=== PATIENT | male | born 1965 | race Caucasian/White ===

== ENCOUNTER 2016-09-15 20:33 | Emergency (ER) | payer BC ==
[~2016-09-15] VITALS: Ht 175.2 cm; Wt 74.8 kg
[~2016-09-15 20:33] MED LIST: FLOMAX0.4 MG PO; HYDROCODONE BIT1 T11 PO; PHENERGAN25 MG RC; VICODIN 500 MG-1 TAB PO; ZOFRAN4 MG PO
[2016-09-15] MEDS ORDERED: CLINDAMYCIN HC300 MG PO (21:10)
[2016-09-15] MEDS ORDERED: Motrin,Rufen800 MG PO (21:10)
== END 2016-09-15 21:12 | disposition home or self-care (01) ==
LOC: ED 20:33
DX: K04.01 Reversible pulpitis (principal); Z88.6 Allergy status to analgesic agent

== ENCOUNTER 2017-05-09 20:19 | Emergency (ER) | payer BC, OTHER ==
[~2017-05-09] VITALS: Ht 175.2 cm; Wt 72.6 kg
[~2017-05-09 20:19] MED LIST changes: +CLINDAMYCIN HC300 MG PO; +Motrin,Rufen800 MG PO
[2017-05-09] MEDS ORDERED: ATARAX,VISTARIL50 MG PO (20:32)
== END 2017-05-09 20:40 | disposition home or self-care (01) ==
LOC: ED 20:19
DX: T63.441A Toxic effect of venom of bees, accidental (unintentional), initial encounter (principal); M79.89 Other specified soft tissue disorders; Z88.6 Allergy status to analgesic agent; Y92.9 Unspecified place or not applicable

== ENCOUNTER 2019-06-14 20:15 | Emergency (ER) | payer OTHER ==
[~2019-06-14] VITALS: Ht 175.2 cm; Wt 73.9 kg
[~2019-06-14 20:15] MED LIST changes: +ATARAX,VISTARIL50 MG PO; +CHLORASEPTIC MA30 ML MM; +CYCLOBENZAPRINE10 MG PO; +MEDROL DOSEPAK4 MG PO; +MULTIVITAMINS1 EAC5 PO; +NORCO 5-325 TA1 EACH PO; +ULTRAM50 MG PO
[2019-06-14] MEDS ORDERED: SEPTDS PO (20:34)
[2019-06-14] MEDS ORDERED: ANTIBIOTIC28.4 GM T (20:34)
== END 2019-06-14 20:48 | disposition home or self-care (01) ==
LOC: ED 20:15
DX: L08.9 Local infection of the skin and subcutaneous tissue, unspecified (principal); Z88.6 Allergy status to analgesic agent; Z79.899 Other long term (current) drug therapy

== ENCOUNTER 2021-08-27 18:12 | Emergency (ER) | payer OTHER ==
[~2021-08-27 18:12] MED LIST changes: +ANTIBIOTIC28.4 GM T; +SEPTDS PO
== END 2021-08-27 23:11 | disposition left against medical advice (07) ==
LOC: ED 18:12
DX: Z53.21 Procedure and treatment not carried out due to patient leaving prior to being seen by health care provider (principal)

== ENCOUNTER → 2021-08-31 | Outpatient (CLI) | payer OTHER | LOC: WOUNDCARE 01:14 | PROVIDERS: ATTEND Nurse Practitioner Family | DX: S00.03XA Contusion of scalp, initial encounter (principal); L02.811 Cutaneous abscess of head [any part, except face]; Z90.49 Acquired absence of other specified parts of digestive tract; Z98.890 Other specified postprocedural states; Z79.899 Other long term (current) drug therapy; W22.8XXA Striking against or struck by other objects, initial encounter; Y93.89 Activity, other specified; Y92.89 Other specified places as the place of occurrence of the external cause; Y99.8 Other external cause status ==

== ENCOUNTER → 2021-09-03 | Outpatient (CLI) | payer OTHER | END | disposition home or self-care (01) | LOC: CT 11:00 | PROVIDERS: ATTEND Nurse Practitioner Family | DX: S00.03XA Contusion of scalp, initial encounter (principal); S09.90XA Unspecified injury of head, initial encounter; X58.XXXA Exposure to other specified factors, initial encounter; Y93.89 Activity, other specified; Y92.89 Other specified places as the place of occurrence of the external cause; Y99.8 Other external cause status ==

== ENCOUNTER → 2021-09-10 | Outpatient (CLI) | payer OTHER | LOC: WOUNDCARE 01:05 | PROVIDERS: ATTEND Nurse Practitioner Family | DX: S00.03XD Contusion of scalp, subsequent encounter (principal); L02.811 Cutaneous abscess of head [any part, except face]; Z90.49 Acquired absence of other specified parts of digestive tract; Z98.890 Other specified postprocedural states; Z79.899 Other long term (current) drug therapy; W22.8XXD Striking against or struck by other objects, subsequent encounter ==

== ENCOUNTER → 2022-07-02 | Outpatient (CLI) | payer OTHER | END | disposition home or self-care (01) | LOC: RAD 10:42 | PROVIDERS: ATTEND Family Medicine | DX: R05.3 Chronic cough (principal); M47.814 Spondylosis without myelopathy or radiculopathy, thoracic region; M81.0 Age-related osteoporosis without current pathological fracture ==

== ENCOUNTER 2023-09-09 11:21 | Emergency (ER) | payer OTHER ==
[~2023-09-09] VITALS: Ht 172.7 cm; Wt 79.4 kg
[2023-09-09 12:54] LABS: BASO % 0.3 % (0.0-1.0); EOS % 0.3 % (1.0-4.0); HEMATOCRIT 44.8 % (42.0-52.0); LYMPH # 0.8 10*3/uL (1.3-4.4); LYMPH % 10.9 % (27.0-41.0); MEAN CELL VOLUME 100.9 fl (80.0-94.0); MEAN CORPUSCULAR HGB 33.1 pg (27.0-31.0); MEAN CORPUSCULAR HGB CONC 32.8 g/dl (33.0-37.0); MEAN PLATELET VOLUME 8.9 fl (9.6-12.3); MONO # 1.3 10*3/uL (0.1-1.0); MONO % 17.6 % (3.0-9.0); NEUT # 5.4 10*3/uL (2.3-7.9); NEUT % 70.5 % (47.0-73.0); PLATELET COUNT AUTOMATED 189 10*3/uL (130-400); RED BLOOD COUNT 4.44 10*6/uL (4.50-5.90); WHITE BLOOD COUNT 7.6 10*3/uL (4.8-10.8)
[2023-09-09 13:05] LABS: ACT PARTIAL THROMBO TIME 34.7 SECONDS (20.0-32.1)
[2023-09-09 13:21] LABS: ALKALINE PHOSPHATASE 79 U/L (46-116); BUN 16 mg/dl (9-23); CHLORIDE 104 mmol/L (98-107); LIPASE 65 U/L (12-53); POTASSIUM 3.9 mmol/L (3.4-5.1); SGPT/ALT 31 U/L (5-49); TOTAL PROTEIN 6.9 gm/dL (6.0-8.0)
[2023-09-09] MEDS ORDERED: Motrin,Rufen800 MG PO (14:27)
[2023-09-09] MEDS ORDERED: ONDANSETRON4 MG SL (14:27)
== END 2023-09-09 14:40 | disposition home or self-care (01) ==
LOC: ED 11:21
PROVIDERS: Emergency Medicine
DX: J10.1 Influenza due to other identified influenza virus with other respiratory manifestations (principal); R10.2 Pelvic and perineal pain; Z87.442 Personal history of urinary calculi; Z88.5 Allergy status to narcotic agent; Z90.89 Acquired absence of other organs; Z90.49 Acquired absence of other specified parts of digestive tract; Z98.890 Other specified postprocedural states; Z20.822 Contact with and (suspected) exposure to COVID-19

== ENCOUNTER → 2024-04-04 | Outpatient (CLI) | payer OTHER ==
[~2024-04-04] MED LIST changes: +ONDANSETRON4 MG SL
[2024-04-04 09:12] LABS: BASO # 0.1 10*3/uL (0.0-0.1); BASO % 0.8 % (0.0-1.0); EOS # 0.5 10*3/uL (0.0-0.4); EOS % 6.5 % (1.0-4.0); HEMATOCRIT 51.5 % (42.0-52.0); LYMPH # 2.1 10*3/uL (1.3-4.4); LYMPH % 25.6 % (27.0-41.0); MEAN CORPUSCULAR HGB 33.9 pg (27.0-31.0); MEAN CORPUSCULAR HGB CONC 33.2 g/dl (33.0-37.0); MEAN PLATELET VOLUME 9.1 fl (9.6-12.3); MONO % 12.4 % (3.0-9.0); NEUT # 4.4 10*3/uL (2.3-7.9); NEUT % 54.3 % (47.0-73.0); PLATELET COUNT AUTOMATED 220 10*3/uL (130-400); RED BLOOD COUNT 5.05 10*6/uL (4.50-5.90); RED CELL DISTRI WIDTH 12.1 % (0-14.5)
[2024-04-04 09:15] LABS: BILIRUBIN Negative (Negative); BLOOD Negative (Negative); CLARITY Clear (Clear); COLOR Yellow (Yellow); GLUCOSE Negative (Negative); KETONE Negative (Negative); LEUKO ESTERASE Negative (Negative); NITRITE Negative (Negative); PH 5.5 (4.5-8.0); UROBILINOGEN 0.2 E.U./dl (0.0-1.0)
[2024-04-04 09:49] LABS: POTASSIUM 3.8 mmol/L (3.4-5.1); TOTAL PROTEIN 7.1 gm/dL (6.0-8.0)
[2024-04-04 10:07] LABS: BACTERIA TRACE; EPITHELIAL CELLS 0-2; MUCOUS 2+
[2024-04-07 16:08] LABS: TESTOSTERONE FREE, (DIRECT) 11.3 pg/mL (7.2-24.0)
== END | disposition home or self-care (01) ==
LOC: LAB 08:25
PROVIDERS: ATTEND Nurse Practitioner Family
DX: Z13.0 Encounter for screening for diseases of the blood and blood-forming organs and certain disorders involving the immune mechanism (principal); Z13.29 Encounter for screening for other suspected endocrine disorder; Z13.1 Encounter for screening for diabetes mellitus; Z13.228 Encounter for screening for other metabolic disorders; N52.9 Male erectile dysfunction, unspecified; Z76.89 Persons encountering health services in other specified circumstances

== ENCOUNTER 2024-10-09 05:15 | Emergency (ER) | payer OTHER ==
[~2024-10-09] VITALS: Ht 172.7 cm; Wt 81.6 kg
[2024-10-09] MEDS ORDERED: Tdap Vaccine 0.5 ML SYR (Adult Vaccine) IM ONE (06:20)
[2024-10-09] MEDS ORDERED: DERMABOND 1 EA APPL T ONE (06:35)
== END 2024-10-09 06:42 | disposition home or self-care (01) ==
LOC: ED 05:15
DX: S01.81XA Laceration without foreign body of other part of head, initial encounter (principal); Z88.5 Allergy status to narcotic agent; Z88.8 Allergy status to other drugs, medicaments and biological substances; Z79.899 Other long term (current) drug therapy; Z79.2 Long term (current) use of antibiotics; Z98.890 Other specified postprocedural states; Z90.89 Acquired absence of other organs; W22.8XXA Striking against or struck by other objects, initial encounter; Y93.89 Activity, other specified; Y92.89 Other specified places as the place of occurrence of the external cause; Y99.0 Civilian activity done for income or pay

== ENCOUNTER 2024-12-30 10:02 | Emergency (ER) | payer OTHER ==
[~2024-12-30] VITALS: Ht 172.7 cm; Wt 81.6 kg
[2024-12-30] MEDS ORDERED: OMEPRAZOLE40 MG PO (10:07)
[2024-12-30] MEDS ORDERED: TADALAFIL10 MG PO (10:07)
[2024-12-30] MEDS ORDERED: SODIUM CHLORIDE 0.9% 1,000 ML IV ONE (10:20)
[2024-12-30] MEDS ORDERED: MORPHINE Sulfate 2 MG/ML SYR IV ONE (10:20)
[2024-12-30] MEDS ORDERED: Ondansetron Hydrochloride 4 MG/2 ML VIAL IV ONE (10:20)
[2024-12-30] MEDS ORDERED: Ketorolac Tromethamine 15 MG/ML VIAL IV ONE (10:20)
[2024-12-30 10:33] LABS: BASO % 0.4 % (0.0-1.0); EOS # 0.3 10*3/uL (0.0-0.4); EOS % 2.7 % (1.0-4.0); HEMATOCRIT 49.8 % (42.0-52.0); MEAN CELL VOLUME 98.4 fl (80.0-94.0); MEAN CORPUSCULAR HGB CONC 33.5 g/dl (33.0-37.0); MEAN PLATELET VOLUME 8.9 fl (9.6-12.3); NEUT # 7.5 10*3/uL (2.3-7.9); NEUT % 72.1 % (47.0-73.0); PLATELET COUNT AUTOMATED 220 10*3/uL (130-400); RED BLOOD COUNT 5.06 10*6/uL (4.50-5.90); RED CELL DISTRI WIDTH 11.8 % (0-14.5); WHITE BLOOD COUNT 10.4 10*3/uL (4.8-10.8)
[2024-12-30 10:51] LABS: POTASSIUM 3.9 mmol/L (3.4-5.1)
[2024-12-30] MEDS ORDERED: FLOMAX0.4 MG PO (11:22)
[2024-12-30] MEDS ORDERED: Ondansetron4 MG PO (11:22)
[2024-12-30] MEDS ORDERED: PERCOCET 5-3251 EACH PO (11:22)
== END 2024-12-30 11:31 | disposition home or self-care (01) ==
LOC: ED 10:02
PROVIDERS: Emergency Medicine
DX: N13.2 Hydronephrosis with renal and ureteral calculous obstruction (principal); R11.2 Nausea with vomiting, unspecified; Z90.49 Acquired absence of other specified parts of digestive tract; Z87.442 Personal history of urinary calculi; Z88.5 Allergy status to narcotic agent; Z88.8 Allergy status to other drugs, medicaments and biological substances; Z79.899 Other long term (current) drug therapy; Z98.890 Other specified postprocedural states; Z90.89 Acquired absence of other organs

== ENCOUNTER → 2025-01-11 | Outpatient (CLI) | payer OTHER ==
[~2025-01-11] MED LIST changes: +OMEPRAZOLE40 MG PO; +Ondansetron4 MG PO; +PERCOCET 5-3251 EACH PO; +TADALAFIL10 MG PO
== END | disposition home or self-care (01) ==
LOC: US 01-04 08:30
PROVIDERS: ATTEND Internal Medicine Nephrology
DX: N20.0 Calculus of kidney (principal); N28.1 Cyst of kidney, acquired; N32.89 Other specified disorders of bladder; N18.31 Chronic kidney disease, stage 3a

== ENCOUNTER → 2025-06-17 | Outpatient (CLI) | payer OTHER ==
[2025-06-17 08:37] LABS: BASO # 0.1 10*3/uL (0.0-0.1); BASO % 0.7 % (0.0-1.0); EOS # 0.4 10*3/uL (0.0-0.4); EOS % 4.5 % (1.0-4.0); MEAN CELL VOLUME 101.6 fl (80.0-94.0); MEAN CORPUSCULAR HGB 33.3 pg (27.0-31.0); MEAN PLATELET VOLUME 9.4 fl (9.6-12.3); MONO # 1.1 10*3/uL (0.1-1.0); MONO % 12.4 % (3.0-9.0); NEUT # 5.2 10*3/uL (2.3-7.9); NEUT % 57.2 % (47.0-73.0); NUCLEATED RED BLOOD CELL 0.0 % (0.0-0.0); NUCLEATED RED BLOOD CELL 0.0 10*3/uL (0.0-0.0); PLATELET COUNT AUTOMATED 223 10*3/uL (130-400); RED CELL DISTRI WIDTH 11.8 % (0-14.5)
[2025-06-17 09:00] LABS: BILIRUBIN Negative (Negative); BLOOD Negative (Negative); CLARITY Clear (Clear); COLOR Dark Yellow (Yellow); KETONE Trace (Negative); LEUKO ESTERASE Trace (Negative); NITRITE Negative (Negative); PH 5.5 (4.5-8.0); SPECIFIC GRAVITY 1.020 (1.001-1.030); UROBILINOGEN 0.2 E.U./dl (0.0-1.0)
[2025-06-17 09:08] LABS: VITAMIN D, 25-HYDROXY 62.3 ng/mL (30-100)
[2025-06-17 09:11] LABS: BUN 13.0 mg/dl (9-23)
[2025-06-17 11:19] LABS: BACTERIA TRACE; MUCOUS TRACE
== END | disposition home or self-care (01) ==
LOC: LAB 07:54
PROVIDERS: ATTEND Internal Medicine Nephrology
DX: N18.31 Chronic kidney disease, stage 3a (principal)